=== PATIENT | male | born 1985 | race Hispanic/Latino ===

== ENCOUNTER 2019-11-09 03:35 | Emergency (ER) | payer SELFPAY ==
[2019-11-09] MEDS ORDERED: Dexamethasone 10 MG/ML VIAL ONE (04:05)
[2019-11-09] MEDS ORDERED: Ketorolac Tromethamine 30 MG/ML VIAL ONE (04:05)
== END 2019-11-09 04:40 | disposition home or self-care (01) ==
LOC: ERS 03:35
DX: M54.32 Sciatica, left side (principal); E11.9 Type 2 diabetes mellitus without complications; Z79.84 Long term (current) use of oral hypoglycemic drugs
CPT/HCPCS: 96372; 99283; J1100; J1885